=== PATIENT | female | born 1930 | race Caucasian/White ===

== ENCOUNTER → 2016-10-05 | Outpatient (CLI) | payer MEDICARE, BC ==
[~2016-10-05] MED LIST: AMBIEN5 M1 PO; ASPIRIN E.C. 8181 MG PO; BENADRYL ALLERG25 M2 PO; BENTYL10 M1 PO; CALCIUM 600MG+D1 TAB PO; CELEBREX PO; CLOPIDOGREL PO; DITROPAN XL10 M1 PO; GLIMEPIRIDE4 MG PO; HYDROCHLOROTHIA1 T15 PO; LASIX20 M1 PO; LYRICA 25MG CAP25 MG PO; METHOCARBAMOL750 MG PO; NORCO 325 MG-51 TA1 PO; NORCO 325 MG-51 TAB PO; OMEGA 3 1,0001 EACH PO; PHARMASSURE MA500 MG PO; ROBAXIN 75750 MG/TA1 PO; SENNA PLUS 50 M1 TA1 PO; TUMS REGULAR S500 MG PO
== END ==
LOC: LAB 08:00
DX: E11.9 Type 2 diabetes mellitus without complications (principal); I10 Essential (primary) hypertension

== ENCOUNTER → 2016-12-27 | Outpatient (CLI) | payer MEDICARE, BC ==
[~2016-12-27] VITALS: Ht 162.6 cm; Wt 100.5 kg
[2016-12-27 10:46] VITALS: BP 100/59
== END ==
LOC: AMSURD 10:18
DX: K42.9 Umbilical hernia without obstruction or gangrene (principal)

== ENCOUNTER → 2018-11-06 | Outpatient (CLI) | payer MEDICARE, BC ==
[2016-12-27 10:46] VITALS: BP 100/59
[2018-11-06 12:50] LABS: ALBUMIN 4.4 g/dL (3.5-5.0); CALCIUM 9.5 mg/dL (8.4-10.2); POTASSIUM 4.6 mmol/L (3.6-5.0); TOTAL BILIRUBIN 0.4 mg/dL (0.2-1.3); TOTAL PROTEIN 7.4 g/dL (6.3-8.2)
== END ==
LOC: LAB 12:03
PROVIDERS: Family Medicine
DX: Z00.00 Encounter for general adult medical examination without abnormal findings (principal); E11.9 Type 2 diabetes mellitus without complications; E66.01 Morbid (severe) obesity due to excess calories; E55.9 Vitamin D deficiency, unspecified; R53.83 Other fatigue

== ENCOUNTER → 2018-11-12 | Outpatient (CLI) | payer MEDICARE, BC ==
[2016-12-27 10:46] VITALS: BP 100/59
== END ==
LOC: RAD 08:25 → MAMMO 08:30
DX: Z00.00 Encounter for general adult medical examination without abnormal findings (principal); Z13.820 Encounter for screening for osteoporosis; M81.0 Age-related osteoporosis without current pathological fracture; J32.0 Chronic maxillary sinusitis; M54.2 Cervicalgia; M47.812 Spondylosis without myelopathy or radiculopathy, cervical region; E04.9 Nontoxic goiter, unspecified; R51 Headache; Z96.643 Presence of artificial hip joint, bilateral; H53.9 Unspecified visual disturbance
CPT/HCPCS: Q9967

== ENCOUNTER → 2018-11-14 | Outpatient (CLI) | payer MEDICARE, BC ==
[2016-12-27 10:46] VITALS: BP 100/59
== END ==
LOC: RAD 09:18
DX: E04.2 Nontoxic multinodular goiter (principal)

== ENCOUNTER → 2020-01-14 | Outpatient (CLI) | payer MEDICARE, BC ==
[2016-12-27 10:46] VITALS: BP 100/59
== END ==
LOC: RAD 15:13
DX: G31.9 Degenerative disease of nervous system, unspecified (principal); J32.0 Chronic maxillary sinusitis; E04.1 Nontoxic single thyroid nodule; D34 Benign neoplasm of thyroid gland; M19.012 Primary osteoarthritis, left shoulder; M47.814 Spondylosis without myelopathy or radiculopathy, thoracic region; M85.812 Other specified disorders of bone density and structure, left shoulder; R07.81 Pleurodynia; W19.XXXA Unspecified fall, initial encounter

== ENCOUNTER 2020-02-09 13:45 | Outpatient (RCR) | payer MEDICARE, BC ==
[2016-12-27 10:46] VITALS: BP 100/59
== END 2020-04-25 ==
LOC: PT
DX: S09.90XA Unspecified injury of head, initial encounter (principal); M25.512 Pain in left shoulder; R07.81 Pleurodynia; W19.XXXA Unspecified fall, initial encounter

== ENCOUNTER → 2020-09-10 | Outpatient (CLI) | payer MEDICARE, BC ==
[2016-12-27 10:46] VITALS: BP 100/59
== END ==
LOC: CARDREHAB 07:39
DX: Z01.818 Encounter for other preprocedural examination (principal); R07.9 Chest pain, unspecified
CPT/HCPCS: A9500

== ENCOUNTER → 2020-09-14 | Outpatient (CLI) | payer MEDICARE, BC ==
[2016-12-27 10:46] VITALS: BP 100/59
[2020-09-14 14:51] LABS: HEMATOCRIT 41.9 % (37.0-47.0); MEAN PLATELET VOLUME 9.9 fl (7.4-10.4); RED BLOOD COUNT 4.74 M/mm3 (4.10-5.30); RED CELL DISTRIBUTION WIDTH 13.7 % (11.5-14.5); WHITE BLOOD COUNT 8.5 K/mm3 (4.8-10.8)
[2020-09-14 14:59] LABS: POTASSIUM 4.2 mmol/L (3.5-5.1)
[2020-09-14 15:07] LABS: MAGNESIUM 2.12 mg/dL (1.60-2.60)
== END ==
LOC: RAD 13:46 → AMSURD 13:46
PROVIDERS: Family Medicine
DX: I21.9 Acute myocardial infarction, unspecified (principal); I45.10 Unspecified right bundle-branch block; I48.91 Unspecified atrial fibrillation; I51.7 Cardiomegaly; Z96.611 Presence of right artificial shoulder joint; Z95.820 Peripheral vascular angioplasty status with implants and grafts

== ENCOUNTER → 2020-09-23 | Outpatient (CLI) | payer MEDICARE, BC ==
[2016-12-27 10:46] VITALS: BP 100/59
[2020-09-23 09:54] LABS: POTASSIUM 4.7 mmol/L (3.5-5.1)
[2020-09-23 09:55] LABS: CALCIUM 8.6 mg/dL (8.3-10.5)
== END ==
LOC: LAB 09:32
PROVIDERS: Family Medicine
DX: R06.00 Dyspnea, unspecified (principal)

== ENCOUNTER → 2020-10-27 | Outpatient (CLI) | payer MEDICARE, BC ==
[2016-12-27 10:46] VITALS: BP 100/59
== END ==
LOC: RAD 10:39
DX: I51.7 Cardiomegaly (principal); J98.8 Other specified respiratory disorders; I27.20 Pulmonary hypertension, unspecified; I77.89 Other specified disorders of arteries and arterioles
CPT/HCPCS: Q9967

== ENCOUNTER → 2020-10-28 | Outpatient (CLI) | payer MEDICARE, BC ==
[2016-12-27 10:46] VITALS: BP 100/59
[2020-10-28 11:09] LABS: PROTHROMBIN TIME 10.4 SECONDS (9.0-12.0)
== END ==
LOC: LAB 10:40
PROVIDERS: Family Medicine
DX: I48.91 Unspecified atrial fibrillation (principal)

== ENCOUNTER → 2020-11-01 | Outpatient (CLI) | payer MEDICARE, BC ==
[2016-12-27 10:46] VITALS: BP 100/59
[2020-11-01 13:41] LABS: PROTHROMBIN TIME 24.6 SECONDS (9.0-12.0)
== END ==
LOC: LAB 13:09
PROVIDERS: Family Medicine
DX: I48.91 Unspecified atrial fibrillation (principal)

== ENCOUNTER → 2020-11-09 | Outpatient (CLI) | payer MEDICARE, BC ==
[2016-12-27 10:46] VITALS: BP 100/59
[2020-11-09 11:05] LABS: PROTHROMBIN TIME 31.9 SECONDS (9.0-12.0)
== END ==
LOC: LAB 10:35
PROVIDERS: Family Medicine
DX: I48.91 Unspecified atrial fibrillation (principal)

== ENCOUNTER → 2020-11-16 | Outpatient (CLI) | payer MEDICARE, BC ==
[2016-12-27 10:46] VITALS: BP 100/59
[2020-11-16 10:34] LABS: PROTHROMBIN TIME 44.3 SECONDS (9.0-12.0)
== END ==
LOC: LAB 09:42
PROVIDERS: Family Medicine
DX: I48.91 Unspecified atrial fibrillation (principal)

== ENCOUNTER → 2020-11-19 | Outpatient (CLI) | payer MEDICARE, BC ==
[2016-12-27 10:46] VITALS: BP 100/59
[2020-11-19 10:31] LABS: PROTHROMBIN TIME 34.3 SECONDS (9.0-12.0)
== END ==
LOC: LAB 09:45
PROVIDERS: Family Medicine
DX: I48.91 Unspecified atrial fibrillation (principal)

== ENCOUNTER → 2020-11-26 | Outpatient (CLI) | payer MEDICARE, BC ==
[2016-12-27 10:46] VITALS: BP 100/59
[2020-11-26 09:56] LABS: POTASSIUM 4.3 mmol/L (3.5-5.1)
[2020-11-26 09:58] LABS: CALCIUM 9.5 mg/dL (8.3-10.5)
[2020-11-26 10:59] LABS: PROTHROMBIN TIME 23.5 SECONDS (9.0-12.0)
== END ==
LOC: LAB 09:24
PROVIDERS: Family Medicine
DX: I50.32 Chronic diastolic (congestive) heart failure (principal); I48.91 Unspecified atrial fibrillation

== ENCOUNTER → 2020-12-10 | Outpatient (CLI) | payer MEDICARE, BC ==
[2016-12-27 10:46] VITALS: BP 100/59
[2020-12-10 09:34] LABS: PROTHROMBIN TIME 30.3 SECONDS (9.0-12.0)
== END ==
LOC: LAB 08:59
PROVIDERS: Family Medicine
DX: I48.91 Unspecified atrial fibrillation (principal)

== ENCOUNTER → 2020-12-24 | Outpatient (CLI) | payer MEDICARE, BC ==
[2016-12-27 10:46] VITALS: BP 100/59
[2020-12-24 09:43] LABS: PROTHROMBIN TIME 23.7 SECONDS (9.0-12.0)
== END ==
LOC: LAB 09:16
PROVIDERS: Family Medicine
DX: I48.91 Unspecified atrial fibrillation (principal)

== ENCOUNTER → 2021-01-07 | Outpatient (CLI) | payer MEDICARE, BC ==
[2016-12-27 10:46] VITALS: BP 100/59
[2021-01-07 09:29] LABS: PROTHROMBIN TIME 29.7 SECONDS (9.0-12.0)
== END ==
LOC: LAB 08:50
PROVIDERS: Family Medicine
DX: I48.91 Unspecified atrial fibrillation (principal)

== ENCOUNTER → 2021-01-18 | Outpatient (CLI) | payer MEDICARE, BC ==
[2021-01-18 14:46] LABS: POTASSIUM 4.6 mmol/L (3.5-5.1)
[2021-01-18 14:47] LABS: CALCIUM 9.4 mg/dL (8.3-10.5)
[2021-01-18 14:49] LABS: TOTAL PROTEIN 6.9 g/dL (6.2-8.1)
[2021-01-18 14:50] LABS: TOTAL BILIRUBIN 0.6 mg/dL (0.2-1.2)
== END ==
LOC: LAB 14:05
PROVIDERS: Family Medicine
DX: I50.9 Heart failure, unspecified (principal)

== ENCOUNTER → 2021-02-08 | Outpatient (CLI) | payer MEDICARE, BC ==
[2021-02-08 10:50] LABS: PROTHROMBIN TIME 19.3 SECONDS (9.0-12.0)
== END ==
LOC: LAB 09:37
PROVIDERS: Family Medicine
DX: I48.91 Unspecified atrial fibrillation (principal)

== ENCOUNTER → 2021-02-11 | Outpatient (CLI) | payer MEDICARE, BC ==
[2021-02-11 10:57] LABS: PROTHROMBIN TIME 22.1 SECONDS (9.0-12.0)
== END ==
LOC: LAB 09:32
PROVIDERS: Family Medicine
DX: I50.9 Heart failure, unspecified (principal)

== ENCOUNTER → 2021-02-18 | Outpatient (CLI) | payer MEDICARE, BC ==
[2021-02-18 10:09] LABS: PROTHROMBIN TIME 17.8 SECONDS (9.0-12.0)
== END ==
LOC: LAB 09:14
PROVIDERS: Family Medicine
DX: I48.91 Unspecified atrial fibrillation (principal)

== ENCOUNTER → 2021-02-25 | Outpatient (CLI) | payer MEDICARE, BC ==
[2021-02-25 10:32] LABS: PROTHROMBIN TIME 22.2 SECONDS (9.0-12.0)
== END ==
LOC: LAB 09:27
PROVIDERS: Family Medicine
DX: I48.91 Unspecified atrial fibrillation (principal)

== ENCOUNTER → 2021-03-11 | Outpatient (CLI) | payer MEDICARE, BC ==
[2021-03-11 09:53] LABS: PROTHROMBIN TIME 43.5 SECONDS (9.0-12.0)
== END ==
LOC: LAB 09:10
PROVIDERS: Family Medicine
DX: I48.91 Unspecified atrial fibrillation (principal)

== ENCOUNTER → 2021-03-14 | Outpatient (CLI) | payer MEDICARE, BC ==
[2021-03-14 09:55] LABS: PROTHROMBIN TIME 17.2 SECONDS (9.0-12.0)
== END ==
LOC: LAB 09:19
PROVIDERS: Family Medicine
DX: I48.91 Unspecified atrial fibrillation (principal)

== ENCOUNTER → 2021-03-22 | Outpatient (CLI) | payer MEDICARE, BC | LOC: LAB 09:14 | PROVIDERS: Family Medicine | DX: I48.91 Unspecified atrial fibrillation (principal) ==

== ENCOUNTER → 2021-04-05 | Outpatient (CLI) | payer MEDICARE, BC ==
[2021-04-05 11:39] LABS: PROTHROMBIN TIME 42.8 SECONDS (9.0-12.0)
== END ==
LOC: LAB 10:27
PROVIDERS: Family Medicine
DX: I48.91 Unspecified atrial fibrillation (principal)

== ENCOUNTER → 2021-04-08 | Outpatient (CLI) | payer MEDICARE, BC ==
[2021-04-08 10:25] LABS: PROTHROMBIN TIME 16.4 SECONDS (9.0-12.0)
== END ==
LOC: LAB 09:30
PROVIDERS: Family Medicine
DX: I48.91 Unspecified atrial fibrillation (principal)

== ENCOUNTER → 2021-04-15 | Outpatient (CLI) | payer MEDICARE, BC | LOC: LAB 09:37 | PROVIDERS: Family Medicine | DX: I48.91 Unspecified atrial fibrillation (principal) ==

== ENCOUNTER → 2021-04-19 | Outpatient (CLI) | payer MEDICARE, BC ==
[2021-04-19 10:55] LABS: PROTHROMBIN TIME 15.3 SECONDS (9.0-12.0)
== END ==
LOC: LAB 09:51
PROVIDERS: Family Medicine
DX: I48.91 Unspecified atrial fibrillation (principal)

== ENCOUNTER → 2021-04-26 | Outpatient (CLI) | payer MEDICARE, BC ==
[2021-04-26 11:58] LABS: PROTHROMBIN TIME 22.3 SECONDS (9.0-12.0)
== END ==
LOC: LAB 11:31
PROVIDERS: Family Medicine
DX: I48.91 Unspecified atrial fibrillation (principal)

== ENCOUNTER → 2021-05-10 | Outpatient (CLI) | payer MEDICARE, BC ==
[2021-05-10 10:10] LABS: PROTHROMBIN TIME 21.7 SECONDS (9.0-12.0)
== END ==
LOC: LAB 09:21
PROVIDERS: Family Medicine
DX: I48.91 Unspecified atrial fibrillation (principal)

== ENCOUNTER → 2021-05-25 | Outpatient (CLI) | payer MEDICARE, BC | LOC: LAB 09:44 | PROVIDERS: Family Medicine | DX: I48.91 Unspecified atrial fibrillation (principal) ==

== ENCOUNTER → 2021-05-27 | Outpatient (CLI) | payer MEDICARE, BC ==
[2021-05-27 10:21] LABS: PROTHROMBIN TIME 17.7 SECONDS (9.0-12.0)
== END ==
LOC: LAB 09:30
PROVIDERS: Family Medicine
DX: I48.91 Unspecified atrial fibrillation (principal)

== ENCOUNTER → 2021-05-30 | Outpatient (CLI) | payer MEDICARE, BC ==
[2021-05-30 10:40] LABS: PROTHROMBIN TIME 23.6 SECONDS (9.0-12.0)
== END ==
LOC: LAB 09:30
PROVIDERS: Family Medicine
DX: I48.91 Unspecified atrial fibrillation (principal)

== ENCOUNTER → 2021-06-03 | Outpatient (CLI) | payer MEDICARE, BC ==
[2021-06-03 10:22] LABS: PROTHROMBIN TIME 17.4 SECONDS (9.0-12.0)
== END ==
LOC: LAB 09:37
PROVIDERS: Family Medicine
DX: I48.91 Unspecified atrial fibrillation (principal)

== ENCOUNTER → 2021-06-13 | Outpatient (CLI) | payer MEDICARE, BC ==
[2021-06-13 10:36] LABS: PROTHROMBIN TIME 27.2 SECONDS (9.0-12.0)
== END ==
LOC: LAB 09:25
PROVIDERS: Family Medicine
DX: I48.91 Unspecified atrial fibrillation (principal)

== ENCOUNTER → 2021-06-27 | Outpatient (CLI) | payer MEDICARE, BC ==
[2021-06-27 10:08] LABS: PROTHROMBIN TIME 27.7 SECONDS (9.0-12.0)
== END ==
LOC: LAB 09:32
PROVIDERS: Family Medicine
DX: I48.91 Unspecified atrial fibrillation (principal)

== ENCOUNTER → 2021-07-11 | Outpatient (CLI) | payer MEDICARE, BC ==
[2021-07-11 10:21] LABS: PROTHROMBIN TIME 24.1 SECONDS (9.0-12.0)
== END ==
LOC: LAB 09:29
PROVIDERS: Family Medicine
DX: I48.91 Unspecified atrial fibrillation (principal)

== ENCOUNTER → 2021-07-25 | Outpatient (CLI) | payer MEDICARE, BC ==
[2021-07-25 10:29] LABS: PROTHROMBIN TIME 25.1 SECONDS (9.0-12.0)
== END ==
LOC: LAB 09:18
PROVIDERS: Family Medicine
DX: I48.91 Unspecified atrial fibrillation (principal)

== ENCOUNTER → 2021-08-22 | Outpatient (CLI) | payer MEDICARE, BC ==
[2021-08-22 10:30] LABS: PROTHROMBIN TIME 23.7 SECONDS (9.0-12.0)
== END ==
LOC: LAB 09:50
PROVIDERS: Family Medicine
DX: I48.91 Unspecified atrial fibrillation (principal)

== ENCOUNTER → 2021-09-08 | Outpatient (CLI) | payer MEDICARE, BC ==
[2021-09-08 11:38] LABS: POTASSIUM 5.2 mmol/L (3.5-5.1)
[2021-09-08 11:39] LABS: CALCIUM 9.5 mg/dL (8.3-10.5)
[2021-09-08 11:47] LABS: MAGNESIUM 2.21 mg/dL (1.60-2.60)
== END ==
LOC: LAB 10:46 → RAD 10:46
PROVIDERS: Family Medicine
DX: J32.0 Chronic maxillary sinusitis (principal); I10 Essential (primary) hypertension

== ENCOUNTER → 2021-09-26 | Outpatient (CLI) | payer MEDICARE, BC ==
[2021-09-26 10:22] LABS: PROTHROMBIN TIME 26.9 SECONDS (9.0-12.0)
[2021-09-26 11:28] LABS: POTASSIUM 5.3 mmol/L (3.5-5.1)
[2021-09-26 11:30] LABS: CALCIUM 9.5 mg/dL (8.3-10.5)
== END ==
LOC: LAB 09:34
PROVIDERS: Internal Medicine Cardiovascular Disease
DX: Z51.81 Encounter for therapeutic drug level monitoring (principal); E78.2 Mixed hyperlipidemia

== ENCOUNTER 2021-10-17 15:56 | Emergency (ER) | payer MEDICARE, BC ==
[2021-10-17 16:07] VITALS: BP 150/73
[2021-10-17] MEDS ORDERED: DULOXETINE30 MG PO (16:33)
[2021-10-17] MEDS ORDERED: FLOVENT HFA12 G1 IH (16:33)
[2021-10-17] MEDS ORDERED: ADVAIR DISKUS1 DS2 IH (16:33)
[2021-10-17] MEDS ORDERED: LOPRESSOR 225 MG/TAB PO (16:34)
[2021-10-17] MEDS ORDERED: FUROSEMIDE40 MG (16:34)
[2021-10-17] MEDS ORDERED: WARFARIN SODIUM4 MG PO (16:34)
[2021-10-17] MEDS ORDERED: PREGABALIN75 MG PO (16:34)
[2021-10-17] MEDS ORDERED: SERTRALINE50 MG PO (16:35)
[2021-10-17] MEDS ORDERED: OMEPRAZOLE40 MG PO (16:35)
[2021-10-17 17:00] LABS: BASO # 0.03 K/mm3 (0.02-0.10); EOS # 0.26 K/mm3 (0.04-0.40); HEMATOCRIT 35.7 % (37.0-47.0); HEMOGLOBIN 10.9 g/dL (12.5-16.0); LYMPH# 1.62 K/mm3 (1.50-4.00); MEAN CELL VOLUME 94 fl (78-100); MEAN CORPUSCULAR HEMOGLOBIN 29 pg (27-31); MEAN CORPUSCULAR HGB CONC 31 g/dL (33-37); MEAN PLATELET VOLUME 9.4 fl (7.4-10.4); NEU # 3.72 K/mm3 (1.40-6.50); PLATELET COUNT 208 K/mm3 (130-400); RED BLOOD COUNT 3.82 M/mm3 (4.10-5.30); RED CELL DISTRIBUTION WIDTH 14.5 % (11.5-14.5); WHITE BLOOD COUNT 6.5 K/mm3 (4.8-10.8)
[2021-10-17 17:24] LABS: ALBUMIN 3.8 g/dL (3.4-4.8); POTASSIUM 4.4 mmol/L (3.5-5.1)
[2021-10-17 17:25] LABS: CALCIUM 9.3 mg/dL (8.3-10.5)
[2021-10-17 17:27] LABS: TOTAL PROTEIN 6.7 g/dL (6.2-8.1)
[2021-10-17 17:28] LABS: TOTAL BILIRUBIN 0.7 mg/dL (0.2-1.2)
[2021-10-17 17:33] LABS: MAGNESIUM 2.24 mg/dL (1.60-2.60)
== END 2021-10-17 17:34 | disposition left against medical advice (07) ==
LOC: ED 15:56
PROVIDERS: Physician Assistant
DX: R60.0 Localized edema (principal); R77.8 Other specified abnormalities of plasma proteins

== ENCOUNTER → 2021-10-24 | Outpatient (CLI) | payer MEDICARE, BC ==
[~2021-10-24] MED LIST changes: +ADVAIR DISKUS1 DS2 IH; +DULOXETINE30 MG PO; +FLOVENT HFA12 G1 IH; +FUROSEMIDE40 MG; +LOPRESSOR 225 MG/TAB PO; +OMEPRAZOLE40 MG PO; +PREGABALIN75 MG PO; +SERTRALINE50 MG PO; +WARFARIN SODIUM4 MG PO
[2021-10-24 14:31] LABS: BASO # 0.02 K/mm3 (0.02-0.10); EOS # 0.13 K/mm3 (0.04-0.40); EOS % 1.8 % (1.0-5.0); HEMATOCRIT 37.3 % (37.0-47.0); HEMOGLOBIN 11.1 g/dL (12.5-16.0); LYMPH# 1.61 K/mm3 (1.50-4.00); MEAN CELL VOLUME 95 fl (78-100); MEAN CORPUSCULAR HEMOGLOBIN 28 pg (27-31); MEAN CORPUSCULAR HGB CONC 30 g/dL (33-37); MEAN PLATELET VOLUME 9.1 fl (7.4-10.4); NEU # 4.66 K/mm3 (1.40-6.50); PLATELET COUNT 185 K/mm3 (130-400); RED BLOOD COUNT 3.93 M/mm3 (4.10-5.30); WHITE BLOOD COUNT 7.2 K/mm3 (4.8-10.8)
[2021-10-24 14:44] LABS: ALBUMIN 3.8 g/dL (3.4-4.8)
[2021-10-24 14:45] LABS: POTASSIUM 5.2 mmol/L (3.5-5.1)
[2021-10-24 14:46] LABS: CALCIUM 9.6 mg/dL (8.3-10.5)
[2021-10-24 14:47] LABS: TOTAL PROTEIN 6.7 g/dL (6.2-8.1)
[2021-10-24 14:49] LABS: TOTAL BILIRUBIN 0.5 mg/dL (0.2-1.2)
[2021-10-24 14:52] LABS: PROTHROMBIN TIME 29.7 SECONDS (9.0-12.0)
[2021-10-24 14:59] LABS: TROPONIN-I 0.042 ng/mL (<0.030)
== END ==
LOC: LAB 14:16
PROVIDERS: Family Medicine
DX: M19.019 Primary osteoarthritis, unspecified shoulder (principal); F32.9 Major depressive disorder, single episode, unspecified; I10 Essential (primary) hypertension; E66.01 Morbid (severe) obesity due to excess calories; G62.9 Polyneuropathy, unspecified; I87.2 Venous insufficiency (chronic) (peripheral); K91.1 Postgastric surgery syndromes; M41.9 Scoliosis, unspecified; M48.061 Spinal stenosis, lumbar region without neurogenic claudication; E04.1 Nontoxic single thyroid nodule; E11.9 Type 2 diabetes mellitus without complications; R07.9 Chest pain, unspecified

== ENCOUNTER → 2021-11-21 | Outpatient (CLI) | payer MEDICARE, BC ==
[2021-11-21 11:16] LABS: PROTHROMBIN TIME 26.8 SECONDS (9.0-12.0)
== END ==
LOC: LAB 10:45
PROVIDERS: Family Medicine
DX: I48.91 Unspecified atrial fibrillation (principal)

== ENCOUNTER → 2021-12-26 | Outpatient (CLI) | payer MEDICARE, BC ==
[2021-12-26 10:30] LABS: PROTHROMBIN TIME 16.2 SECONDS (9.0-12.0)
== END ==
LOC: LAB 09:55
PROVIDERS: Family Medicine
DX: Z51.81 Encounter for therapeutic drug level monitoring (principal)

== ENCOUNTER → 2022-01-03 | Outpatient (CLI) | payer MEDICARE, BC ==
[2022-01-03 11:03] LABS: PROTHROMBIN TIME 32.8 SECONDS (9.0-12.0)
== END ==
LOC: LAB 09:48
PROVIDERS: Family Medicine
DX: Z51.81 Encounter for therapeutic drug level monitoring (principal)

== ENCOUNTER → 2022-01-09 | Outpatient (CLI) | payer MEDICARE, BC ==
[2022-01-09 10:26] LABS: PROTHROMBIN TIME 36.3 SECONDS (9.0-12.0)
== END ==
LOC: LAB 09:24
PROVIDERS: Family Medicine
DX: Z51.81 Encounter for therapeutic drug level monitoring (principal)

== ENCOUNTER → 2022-01-13 | Outpatient (CLI) | payer MEDICARE, BC | LOC: LAB 09:27 | PROVIDERS: Family Medicine | DX: Z51.81 Encounter for therapeutic drug level monitoring (principal) ==

== ENCOUNTER → 2022-01-16 | Outpatient (CLI) | payer MEDICARE, BC ==
[2022-01-16 10:08] LABS: PROTHROMBIN TIME 16.2 SECONDS (9.0-12.0)
== END ==
LOC: LAB 09:36
PROVIDERS: Family Medicine
DX: Z51.81 Encounter for therapeutic drug level monitoring (principal)

== ENCOUNTER → 2022-01-20 | Outpatient (CLI) | payer MEDICARE, BC | LOC: LAB 09:48 | PROVIDERS: Family Medicine | DX: Z51.81 Encounter for therapeutic drug level monitoring (principal) ==

== ENCOUNTER → 2022-01-27 | Outpatient (CLI) | payer MEDICARE, BC ==
[2022-01-27 10:56] LABS: PROTHROMBIN TIME 28.4 SECONDS (9.0-12.0)
== END ==
LOC: LAB 10:00
PROVIDERS: Family Medicine
DX: Z51.81 Encounter for therapeutic drug level monitoring (principal)

== ENCOUNTER → 2022-02-03 | Outpatient (CLI) | payer MEDICARE, BC ==
[2022-02-03 12:50] LABS: ALBUMIN 3.9 g/dL (3.4-4.8)
[2022-02-03 12:51] LABS: POTASSIUM 4.9 mmol/L (3.5-5.1)
[2022-02-03 12:52] LABS: CALCIUM 9.1 mg/dL (8.3-10.5)
[2022-02-03 12:53] LABS: TOTAL PROTEIN 6.6 g/dL (6.2-8.1)
[2022-02-03 12:55] LABS: TOTAL BILIRUBIN 0.5 mg/dL (0.2-1.2)
== END ==
LOC: LAB 12:30
PROVIDERS: Family Medicine
DX: J90 Pleural effusion, not elsewhere classified (principal); I11.9 Hypertensive heart disease without heart failure; G45.9 Transient cerebral ischemic attack, unspecified; M19.019 Primary osteoarthritis, unspecified shoulder; F32.9 Major depressive disorder, single episode, unspecified; E66.01 Morbid (severe) obesity due to excess calories; G62.9 Polyneuropathy, unspecified; I87.2 Venous insufficiency (chronic) (peripheral); K91.1 Postgastric surgery syndromes; M41.9 Scoliosis, unspecified; M48.061 Spinal stenosis, lumbar region without neurogenic claudication; E04.1 Nontoxic single thyroid nodule; E11.9 Type 2 diabetes mellitus without complications; I25.10 Atherosclerotic heart disease of native coronary artery without angina pectoris
CPT/HCPCS: Q9967

== ENCOUNTER → 2022-02-17 | Outpatient (CLI) | payer MEDICARE, BC ==
[2022-02-17 10:59] LABS: PROTHROMBIN TIME 31.7 SECONDS (9.0-12.0)
== END ==
LOC: LAB 09:23
PROVIDERS: Family Medicine
DX: Z51.81 Encounter for therapeutic drug level monitoring (principal)

== ENCOUNTER → 2022-02-24 | Outpatient (CLI) | payer MEDICARE, BC ==
[2022-02-24 10:10] LABS: PROTHROMBIN TIME 21.3 SECONDS (9.0-12.0)
== END ==
LOC: LAB 08:58
PROVIDERS: Family Medicine
DX: Z51.81 Encounter for therapeutic drug level monitoring (principal)

== ENCOUNTER → 2022-03-10 | Outpatient (CLI) | payer MEDICARE, BC ==
[2022-03-10 11:03] LABS: PROTHROMBIN TIME 33.6 SECONDS (9.0-12.0)
== END ==
LOC: LAB 10:07
PROVIDERS: Family Medicine
DX: Z51.81 Encounter for therapeutic drug level monitoring (principal)

== ENCOUNTER → 2022-03-24 | Outpatient (CLI) | payer MEDICARE, BC ==
[2022-03-24 10:23] LABS: PROTHROMBIN TIME 36.3 SECONDS (9.0-12.0)
== END ==
LOC: LAB 09:34
PROVIDERS: Family Medicine
DX: Z51.81 Encounter for therapeutic drug level monitoring (principal)

== ENCOUNTER → 2022-03-27 | Outpatient (CLI) | payer MEDICARE, BC ==
[2022-03-27 10:11] LABS: PROTHROMBIN TIME 16.8 SECONDS (9.0-12.0)
== END ==
LOC: LAB 09:32
PROVIDERS: Family Medicine
DX: I48.91 Unspecified atrial fibrillation (principal)

== ENCOUNTER → 2022-03-31 | Outpatient (CLI) | payer MEDICARE, BC | LOC: LAB 09:36 | PROVIDERS: Family Medicine | DX: I48.91 Unspecified atrial fibrillation (principal) ==

== ENCOUNTER → 2022-04-06 | Outpatient (CLI) | payer MEDICARE, BC ==
[2022-04-06 17:07] LABS: PH-URINE 6.5 (5.0 - 8.0); URINE APPEARANCE HAZY; URINE BILIRUBIN NEGATIVE (NEGATIVE); URINE BLOOD NEGATIVE (NEGATIVE); URINE COLOR YELLOW; URINE GLUCOSE NEGATIVE (NEGATIVE); URINE KETONE NEGATIVE (NEGATIVE); URINE LEUKOCYTE ESTERASE NEGATIVE (NEGATIVE); URINE NITRATE NEGATIVE (NEGATIVE); URINE PROTEIN(semi-quant) TRACE (NEGATIVE); URINE UROBILINOGEN NORMAL (NORMAL); URINE WBC 0-1 /hpf (0-3)
[2022-04-06 17:08] LABS: URINE MUCUS PRESENT (NOT PRESENT)
== END ==
LOC: ED 14:52 → EDSTATUS 14:56 → AMSURD 15:09
PROVIDERS: Family Medicine
DX: Z45.2 Encounter for adjustment and management of vascular access device (principal)

== ENCOUNTER 2022-04-11 08:28 | Emergency (ER) | payer MEDICARE, BC ==
[2022-04-11 08:40] VITALS: BP 122/72
[2022-04-11 09:14] LABS: BASO # 0.04 K/mm3 (0.02-0.10); EOS # 0.18 K/mm3 (0.04-0.40); EOS % 2.1 % (1.0-5.0); HEMATOCRIT 37.5 % (37.0-47.0); HEMOGLOBIN 10.9 g/dL (12.5-16.0); LYMPH# 1.35 K/mm3 (1.50-4.00); MEAN CELL VOLUME 87 fl (78-100); MEAN CORPUSCULAR HEMOGLOBIN 25 pg (27-31); MEAN CORPUSCULAR HGB CONC 29 g/dL (33-37); MEAN PLATELET VOLUME 9.7 fl (7.4-10.4); MONO # 1.12 K/mm3 (0.20-0.80); NEU # 5.86 K/mm3 (1.40-6.50); PLATELET COUNT 223 K/mm3 (130-400); RED BLOOD COUNT 4.33 M/mm3 (4.10-5.30); RED CELL DISTRIBUTION WIDTH 14.4 % (11.5-14.5); WHITE BLOOD COUNT 8.6 K/mm3 (4.8-10.8)
[2022-04-11 09:32] LABS: PROTHROMBIN TIME 30.8 SECONDS (9.0-12.0)
== END 2022-04-11 09:53 | disposition home or self-care (01) ==
LOC: ED 08:28
PROVIDERS: Physician Assistant
DX: S71.102A Unspecified open wound, left thigh, initial encounter (principal); E66.01 Morbid (severe) obesity due to excess calories; X58.XXXA Exposure to other specified factors, initial encounter

== ENCOUNTER → 2022-05-01 | Outpatient (CLI) | payer MEDICARE, BC ==
[2022-05-01 11:10] LABS: PROTHROMBIN TIME 23.8 SECONDS (9.0-12.0)
== END ==
LOC: LAB 10:16
PROVIDERS: Family Medicine
DX: I48.91 Unspecified atrial fibrillation (principal)

== ENCOUNTER → 2022-06-15 | Outpatient (CLI) | payer MEDICARE, BC ==
[2022-06-15 10:42] LABS: PROTHROMBIN TIME 22.6 SECONDS (9.0-12.0)
== END ==
LOC: LAB 10:18
PROVIDERS: Family Medicine
DX: I48.91 Unspecified atrial fibrillation (principal)

== ENCOUNTER → 2022-08-30 | Outpatient (CLI) | payer MEDICARE, BC ==
[2022-08-30 11:22] LABS: ALBUMIN 3.8 g/dL (3.4-4.8)
[2022-08-30 11:23] LABS: POTASSIUM 4.7 mmol/L (3.5-5.1)
[2022-08-30 11:24] LABS: CALCIUM 9.3 mg/dL (8.3-10.5)
[2022-08-30 11:25] LABS: TOTAL PROTEIN 6.7 g/dL (6.2-8.1)
[2022-08-30 11:27] LABS: TOTAL BILIRUBIN 0.5 mg/dL (0.2-1.2)
[2022-08-30 12:13] LABS: PROTHROMBIN TIME 10.5 SECONDS (9.0-12.0)
== END ==
LOC: LAB 11:05
PROVIDERS: Nurse Practitioner
DX: Z51.81 Encounter for therapeutic drug level monitoring (principal)

== ENCOUNTER → 2022-09-11 | Outpatient (CLI) | payer MEDICARE, BC ==
[2022-09-11 10:51] LABS: PROTHROMBIN TIME 24.9 SECONDS (9.0-12.0)
== END ==
LOC: LAB 10:00
PROVIDERS: Family Medicine
DX: I48.91 Unspecified atrial fibrillation (principal)

== ENCOUNTER → 2022-09-18 | Outpatient (CLI) | payer MEDICARE, BC ==
[2022-09-18 11:28] LABS: PROTHROMBIN TIME 33.3 SECONDS (9.0-12.0)
== END ==
LOC: LAB 10:12
PROVIDERS: Family Medicine
DX: I48.91 Unspecified atrial fibrillation (principal)

== ENCOUNTER → 2022-09-28 | Outpatient (CLI) | payer MEDICARE, BC ==
[2022-09-28 10:40] LABS: PROTHROMBIN TIME 12.8 SECONDS (9.0-12.0)
== END ==
LOC: LAB 09:33
PROVIDERS: Family Medicine
DX: I48.91 Unspecified atrial fibrillation (principal)

== ENCOUNTER → 2022-10-10 | Outpatient (CLI) | payer MEDICARE, BC ==
[2022-10-10 09:56] LABS: ALBUMIN 3.9 g/dL (3.4-4.8); POTASSIUM 4.8 mmol/L (3.5-5.1)
[2022-10-10 09:57] LABS: CALCIUM 8.8 mg/dL (8.3-10.5)
[2022-10-10 09:59] LABS: TOTAL PROTEIN 6.4 g/dL (6.2-8.1)
[2022-10-10 10:00] LABS: TOTAL BILIRUBIN 0.4 mg/dL (0.2-1.2)
[2022-10-10 10:04] LABS: PROTHROMBIN TIME 21.6 SECONDS (9.0-12.0)
== END ==
LOC: LAB 09:31
PROVIDERS: Nurse Practitioner
DX: I50.9 Heart failure, unspecified (principal); I48.91 Unspecified atrial fibrillation